=== PATIENT | female | born 1970 | race Caucasian/White ===

== ENCOUNTER 2021-09-11 06:53 | Day surgery (SDC) | payer OTHER ==
[2021-09-11] MEDS ORDERED: FERRIC CARBOXYMALTOSE 750 MG in SODIUM CHLORIDE 250 ML IVPB ONE (10:00)
[2021-09-11 14:42] LABS: BASO % 1.5 % (0-2.0); EOS % 0.8 % (0-4.5); HEMATOCRIT 38.5 % (32.4-45.2); LYMPH % 26.3 % (8-40); MCH 33.7 pg (25.7-33.7); MCHC 33.6 g/dl (32.0-36.0); MEAN CELL VOLUME 100.2 fl (80-96); MEAN PLT VOLUME 7.8 fl (7.5-11.1); MONO % 10.3 % (3.8-10.2); NEUT % 61.1 % (42.8-82.8); PLATELET COUNT 273 10^3/uL (134-434); RBC 3.84 M/mm3 (3.60-5.2); RDW 13.9 % (11.6-15.6); WHITE BLOOD COUNT 4.5 K/mm3 (4.0-10.0)
[2021-09-11 15:01] LABS: CALCIUM 8.6 mg/dL (8.5-10.1)
[2021-09-11 15:02] LABS: ALBUMIN 3.4 g/dl (3.4-5.0); BLOOD UREA NITROGEN 22.3 mg/dL (7-18)
[2021-09-11 15:05] LABS: CREATININE 0.7 mg/dL (0.55-1.3)
[2021-09-11 15:07] LABS: BILIRUBIN,TOTAL 0.2 mg/dL (0.2-1); TOT PROT 6.6 g/dl (6.4-8.2)
[2021-09-11 17:06] VITALS: PULSE 65; TEMP 97.5
[2021-09-11 17:10] VITALS: BP 105/66
== END 2021-09-11 16:15 | disposition home or self-care (01) ==
LOC: JONCNONCHE 06:53
PROVIDERS: ATTEND Internal Medicine Hematology & Oncology
PROC: 3E033GC Introduction of Other Therapeutic Substance into Peripheral Vein, Percutaneous Approach (ICD-10-PCS; principal; 2021-09-11)
DX: D50.9 Iron deficiency anemia, unspecified (principal)
CPT/HCPCS: 36415; 80053; 84703; 85025; 96365; J1439

== ENCOUNTER 2021-09-18 06:41 | Day surgery (SDC) | payer OTHER ==
[2021-09-18] MEDS ORDERED: FERRIC CARBOXYMALTOSE 750 MG in SODIUM CHLORIDE 250 ML IVPB ONE (11:00)
[2021-09-18 17:21] VITALS: BP 99/54; PULSE 71; TEMP 97.8
== END 2021-09-18 11:30 | disposition home or self-care (01) ==
LOC: JONCNONCHE 06:41
PROVIDERS: ATTEND Internal Medicine Hematology & Oncology
PROC: 3E033GC Introduction of Other Therapeutic Substance into Peripheral Vein, Percutaneous Approach (ICD-10-PCS; principal; 2021-09-18)
DX: D50.9 Iron deficiency anemia, unspecified (principal)
CPT/HCPCS: 96365; J1439